=== PATIENT | female | born 1945 | race Caucasian/White ===

== ENCOUNTER 2019-12-21 14:01 | Emergency (ER) | payer MEDICARE, SELFPAY ==
--- NOTE | 2019-12-21 14:37 | PC.NURSE ---
1415 Noted prior to triage pt states she is here to have her ear irrigated and wax removed. provider previously stated she will not irrigate ear if needed for wax removal - pt aware. pt states she does not want to be seen at this time and left without being seen. observed talkative in no distress.
== END 2019-12-21 14:15 | disposition left against medical advice (07) ==
LOC: EXPBETH 14:16
PROVIDERS: Emergency Provider Nurse Practitioner Family; PCP Family Medicine
DX: Z53.21 Procedure and treatment not carried out due to patient leaving prior to being seen by health care provider (principal)
CPT/HCPCS: 99199

== ENCOUNTER 2020-05-05 13:16 | Outpatient (CLI) | payer MEDICARE, SELFPAY | END 2020-05-05 13:17 | disposition home or self-care (01) | LOC: ANHSURGERY 13:18 | PROVIDERS: PCP Family Medicine; Visit Provider Urology | DX: N39.3 Stress incontinence (female) (male) (principal) | CPT/HCPCS: 87086; 87088 ==

== ENCOUNTER 2020-05-10 00:11 | Outpatient (CLI) | payer MEDICARE, SELFPAY ==
[2020-05-10 18:10] LABS: SARS-CoV-2 RNA PCR Negative
== END 2020-05-10 00:12 | disposition home or self-care (01) ==
LOC: ANHCOVIDDT 00:11
PROVIDERS: PCP Family Medicine; Visit Provider Urology
DX: Z20.828 Contact with and (suspected) exposure to other viral communicable diseases (principal); Z01.812 Encounter for preprocedural laboratory examination
CPT/HCPCS: 87635; C9803; U0003

== ENCOUNTER 2020-05-12 02:31 | Day surgery (SDC) | payer MEDICARE, SELFPAY ==
[2020-05-04 12:07] VITALS: BMI 30.8
--- NOTE | 2020-05-12 07:13 | WPDHPUPDATE1 ---
History and Physical Update Update Date/Time: 05/12/20 07:13 History and Physical has been reviewed, including an updated exam of the patient. There are NO changes in the patient's condition. Risks, benefits, and alternatives have been discussed and questions answered. Patient agrees to proceed with procedure.
[2020-05-12 07:21] VITALS: BP 147/64; PULSE 57; RESP 16; TEMP 36; O2SAT 98
[2020-05-12] MEDS: LACTATED RINGERS 1,000 ML 30 ML IV CONT (07:35)
--- NOTE | 2020-05-12 07:50 | WPDANESEPPF ---
Anes - Initial Pre Proc Eval Procedure: Operation Date: 05/12/20 08:45 Proposed Procedures p Urethral Sling - Omega Dc MD Date/Time: 05/12/20 07:50 Surgeon: Omega Dc MD Pre Op Diagnosis: Stress Incontinence Patient Data Age: 75 Gender: F Height: 5 ft 5 in Weight: 85.7 kg Last Vital Signs Temp 36.0 C L 05/12/20 07:21 Pulse 57 L 05/12/20 07:21 Resp 16 05/12/20 07:21 BP 147/64 H 05/12/20 07:21 Pulse Ox 98 05/12/20 07:21 Allergies Allergy/AdvReac Type Severity Reaction Status Date / Time nitrofurantoin Allergy Severe Anaphylaxis Verified 05/12/20 07:03 azithromycin AdvReac Intermediate Gastrointestinal Verified 05/12/20 07:03 Upset Home Medications Medication Instructions Recorded Confirmed Type ramipril 5 mg capsule 5 mg PO DAILY 03/20/20 05/12/20 History simvastatin 10 mg tablet 10 mg PO HS 03/20/20 05/12/20 History aspirin [Adult Low Dose Aspirin] 81 mg PO HS 05/04/20 05/12/20 History calcium carbonate-vitamin D3 1 cap PO DAILY 05/04/20 05/12/20 History [Calcium 600 with Vitamin D3] cephalexin 250 mg PO QPM 05/04/20 05/12/20 History loratadine [Claritin] 10 mg PO DAILY PRN 05/04/20 05/12/20 History Patient hx anesthesia problems: none Family hx anesthesia problems: none PMFSH Past Medical History Medical History Essential hypertension History of breast cancer Mixed hyperlipidemia Prediabetes LUZ ELENA (stress urinary incontinence, female) Vitamin D deficiency Family History Family History Father Hypertension Malignant neoplasm of prostate Family history of lung cancer Family history of coronary artery disease Grandparent Family history of coronary artery disease Mother Family history of coronary artery disease Family history of congenital heart disease Family history of rheumatoid arthritis Family history of osteoarthritis Other Family history of malignant neoplasm of breast Social History Social History Smoking status: Never smoker Second hand tobacco smoke exposure: No Smoking end date: 11/24/95 Alcohol intake: current Anes - Eval Final PreProcedure Day of Procedure 05/12/20 07:50 Patient weight: obese Heart: regular rate and rhythm Lungs: clear to auscultation Airway: Mallampati scale class II Neurological: alert and oriented Last oral intake: >/= 8 hours ASA classification: II Emergent: no Anesthetic plan: proceed Anesthesia type and monitoring: general GIVS and standard monitoring Informed Consent: The patient's anesthetic plan and its attendant risks and benefits were discussed with the patient/family/POA. Questions were solicited and answers provided to the satisfaction of the patient/family/POA.
[2020-05-12] MEDS: ceFAZolin 2 GM/D5W 50 ML 2 GM/50 ML BAG IVPB (08:30)
[2020-05-12] MEDS: BUPIVACAINE/EPINEPHRINE 0.25% 50 ML VIAL 10 ML INFILTRATE (08:40)
[2020-05-12 09:00] VITALS: BP 103/61; PULSE 62; RESP 16; O2SAT 96
--- NOTE | 2020-05-12 09:00 | PM.PROC ---
Procedure Note - Detailed Date of procedure: 05/12/20 Pre-op diagnosis: Stress Incontinence Intrinsic sphincter deficiency Post-op diagnosis: same Procedure performed: Cystoscopy with implantation of suburethral implant material [id number] Description of procedure: She was correctly identified and informed consent was obtained. She was brought to the operating room. She was given mac anesthesia. She was placed in the dorsal lithotomy position. She was prepped and draped in a sterile fashion. A time-out performed. Cystoscopy revealed no tumors in the bladder and an open urethra consistent with intrinsic sphincter deficiency. I injected the bulking agent into the urethra at the 10:00 a.m. to o'clock and 6 o'clock position. There is excellent bulking effect. Her bladder was drained with a 12 [place] red rubber catheter. She was awakened and transferred to the PACU in stable condition. Implants: Macroplastique Anesthesia: MAC Surgeon: Omega Dc MD Drains: No Packing: No Pathology: none sent Complications: No immediate complications Condition: stable Disposition: PACU
[2020-05-12 09:15] VITALS: BP 139/68; PULSE 56; RESP 18; O2SAT 100
--- NOTE | 2020-05-12 09:27 | SUR.PHASEII ---
UPDATED; EN ROUTE TO HOSPITAL.
[2020-05-12 09:39] VITALS: BP 133/73; PULSE 55; RESP 16
== END 2020-05-12 09:55 | disposition home or self-care (01) ==
PROVIDERS: PCP Family Medicine; Visit Provider Urology
PROC: (CPT 51715; principal; 2020-05-12 08:45)
DX: N39.3 Stress incontinence (female) (male) (principal); N36.42 Intrinsic sphincter deficiency (ISD); I10 Essential (primary) hypertension; E78.2 Mixed hyperlipidemia; E55.9 Vitamin D deficiency, unspecified; R73.03 Prediabetes; Z85.3 Personal history of malignant neoplasm of breast; Z79.82 Long term (current) use of aspirin; E66.9 Obesity, unspecified; Z68.31 Body mass index [BMI] 31.0-31.9, adult
CPT/HCPCS: 51715; C1771; J0690; J2704; J3010; J7030; J7120

== ENCOUNTER → 2021-03-13 13:03 | Outpatient (CLI) | payer MEDICARE, SELFPAY ==
--- NOTE | ~2021-03-13 | MM_ITS ---
EXAMINATION: MM screening jagruti BI w gregoria HISTORY: Screening mammogram TECHNIQUE: Craniocaudal and mediolateral oblique 3-D tomosynthesis images were obtained and synthetic 2-D images were generated. CAD analysis was submitted and interpreted. COMPARISON: 09/29/2019, 09/07/2018, 09/03/2017 bilateral digital screening mammogram examinations BREAST PARENCHYMAL COMPOSITION: There are scattered areas of fibroglandular density. FINDINGS: Surgical clips and stable scarring are noted posteriorly in the upper outer quadrant of the right breast, without significant change since 09/29/2019 or 09/03/2017. There is no evidence of susp icious mass, calcification, or architectural distortion to suggest malignancy in either breast. There has been no suspicious interval change. IMPRESSION: 1. No mammographic evidence of malignancy. 2. Recommend routine screening mammography in one year. BI-RADS Category 2: Benign finding(s). Reviewed, dictated and finalized at location A.
== END ==
PROVIDERS: PCP Family Medicine; Visit Provider Student in an Organized Health Care Education/Training Program
DX: Z12.31 Encounter for screening mammogram for malignant neoplasm of breast (principal)
CPT/HCPCS: 77063; 77067

== ENCOUNTER 2022-02-05 11:09 | Outpatient (CLI) | payer MEDICARE, SELFPAY ==
--- NOTE | ~2022-02-05 | CT_ITS ---
EXAMINATION: CT abdomen pelvis w con DATE: 02/05/2022 11:45 INDICATION: Left lower quadrant abdominal pain. TECHNIQUE: Computed tomography (CT) of the abdomen and pelvis was performed with 100 mL Omnipaque 350 intravenous contrast. Automated exposure control and iterative reconstruction technique were employe d. The dose-length product was 936.25 mGy-cm. COMPARISON: None. FINDINGS: The visualized portions of the lung bases demonstrate emphysema and mild atelectasis. No pl eural effusion. The heart size is normal. No pericardial effusion. There are coronary artery calcific ations. There is a small sliding hiatal hernia. The liver, gallbladder, spleen, pancreas, adrenal gla nds, and right kidney are normal. There is a 2.6 cm cyst in left kidney. There is diverticulosis of t he colon without evidence of diverticulitis. There are no dilated loops of bowel. The appendix is nor mal. There are no pathologically enlarged lymph nodes. There is no free intraperitoneal fluid. There is mild thoracolumbar spondylosis. IMPRESSION: 1. Small sliding hiatal hernia. Reviewed, dictated and finalized at location A.
[2022-02-05 11:38] LABS: Estimated Glomerular Filt Rate > 60
== END 2022-02-05 11:10 | disposition home or self-care (01) ==
LOC: ANHIMG 11:10
PROVIDERS: PCP Family Medicine; Visit Provider Family Medicine
DX: R10.32 Left lower quadrant pain (principal); K44.9 Diaphragmatic hernia without obstruction or gangrene; K57.30 Diverticulosis of large intestine without perforation or abscess without bleeding; M47.815 Spondylosis without myelopathy or radiculopathy, thoracolumbar region
CPT/HCPCS: 74177; Q9967

== ENCOUNTER → 2022-02-13 15:25 | Outpatient (CLI) | payer MEDICARE, SELFPAY ==
--- NOTE | ~2022-02-13 | XR_ITS ---
XR abdomen obstructive series 02/13/2022 16:18 Indication: Left lower quadrant pain Procedure: Supine and upright views of the abdomen Comparison: No prior studies for comparison. Findings: Bowel pattern is nonobstructive. Moderate colonic fecal loading. There is atherosclerosis. Calcified granuloma left mid thorax. Probable mild interstitial edema. No acute osseous abnormality. 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 No renal stones are identified. There are pelvic phleboliths. Impression: 1: Nonobstructive bowel gas pattern with moderate colonic fecal loading. Reviewed, dictated and finalized at location A. Impression: 1: Nonobstructive bowel gas pattern with moderate colonic fecal loading.
== END ==
PROVIDERS: PCP Family Medicine; Visit Provider Family Medicine
DX: R10.32 Left lower quadrant pain (principal); M16.0 Bilateral primary osteoarthritis of hip; I70.90 Unspecified atherosclerosis
CPT/HCPCS: 74019

== ENCOUNTER 2024-05-01 09:18 | Emergency (ER) | payer MEDICARE, SELFPAY ==
--- NOTE | 2024-05-01 09:25 | ED.GENADULT ---
HPI - General Adult General Chief complaint: Urogenital-Female Stated complaint: Urinary Problem Time Seen by Provider: 05/01/24 09:25 Source: patient, RN notes reviewed and old records reviewed Mode of arrival: ambulatory Limitations: no limitations History of Present Illness HPI narrative: 79-year-old female to express for complaint of urinary frequency, urgency, burning and pain for 2 days. Patient reports she has increased her water intake and used AZO yesterday during the day to control sx. Patient denies abdominal pain, fever, nausea, flank pain. Patient able to tolerate fluids by mouth. Patient in no acute distress. Related Data Home Medications Medication Instructions Recorded Confirmed aspirin 81 mg tablet,delayed 81 mg PO HS 05/04/20 05/01/24 release (Adult Low Dose Aspirin) calcium carbonate 600 mg-vitamin 1 cap PO DAILY 05/04/20 05/01/24 D3 12.5 mcg (500 unit) capsule (Calcium 600 with Vitamin D3) Allergies Allergy/AdvReac Type Severity Reaction Status Date / Time nitrofurantoin Allergy Severe Anaphylaxis Verified 05/01/24 10:09 azithromycin AdvReac Intermediate Gastrointestinal Verified 05/01/24 10:09 Upset Review of Systems Review of Systems: All systems reviewed & are unremarkable except as noted in HPI and below Constitutional: Constitutional: Reports no additional constitutional complaints Eyes: Eyes: Reports no additional eye complaints ENT: Reports system reviewed and no additional complaints, except as documented Cardiovascular: Cardiovascular: Reports no additional cardiovascular complaints, Denies chest pain and Denies dyspnea Respiratory: Respiratory: Reports no additional respiratory complaints, Denies cough and Denies dyspnea Gastrointestinal: Gastrointestinal: Denies abdominal pain, Denies nausea and Denies vomiting Genitourinary: Genitourinary: Reports as per HPI, Reports nocturia, Reports dysuria, Denies flank pain, Reports urinary hesitancy and Reports urinary urgency Musculoskeletal: Musculoskeletal: Reports no additional musculoskeletal complaints Neurologic: Reports system reviewed and no additional complaints, except as documented Psychiatric: Psychiatric: Reports no additional psychiatric complaints [facility] Past Medical History Medical History Bursitis of left hip Essential hypertension History of breast cancer IBS (irritable bowel syndrome) Mixed hyperlipidemia Prediabetes LUZ ELENA (stress urinary incontinence, female) Vitamin D deficiency Surgical History Surgical History H/O colonoscopy with polypectomy (~05/31/20) History of colonoscopy Status post creation of urethral sling by suprapubic approach Family History Family History Father Hypertension Malignant neoplasm of prostate Family history of lung cancer Family history of coronary artery disease Grandparent Family history of coronary artery disease Mother Family history of coronary artery disease Family history of congenital heart disease Family history of rheumatoid arthritis Family history of osteoarthritis Other Family history of malignant neoplasm of breast Social History Social History Smoking status: Former smoker Second hand tobacco smoke exposure: No Smoking end date: 07/25/00 Alcohol intake: current Substance use: never Substance use type: does not use Lack of Transportation: No Lack of Food: Never True Current Housing: I Have Housing Concerned About Future Housing: No Difficulty Paying Gas/Electric Bills: No Difficulty Paying for Meds: No Currently Unemployed: No Education: High School Diploma/GED Difficulty w/ Childcare or Family Care: No Living arrangements: with family Occupation/Education: retir
[2024-05-01 09:32] VITALS: BP 128/62; PULSE 69; RESP 20; TEMP 36.6; O2SAT 100
== END 2024-05-01 10:12 | disposition home or self-care (01) ==
PROVIDERS: Emergency Provider Nurse Practitioner Family; PCP Family Medicine
DX: N39.0 Urinary tract infection, site not specified (principal); B96.20 Unspecified Escherichia coli [E. coli] as the cause of diseases classified elsewhere; Z87.891 Personal history of nicotine dependence; I10 Essential (primary) hypertension; E78.2 Mixed hyperlipidemia; R73.03 Prediabetes; E55.9 Vitamin D deficiency, unspecified; Z85.3 Personal history of malignant neoplasm of breast; Z79.82 Long term (current) use of aspirin
CPT/HCPCS: 81003; 87077; 87086; 87088; 87186; 99213; G0463

== ENCOUNTER 2024-11-03 10:35 | Emergency (ER) | payer MEDICARE, SELFPAY ==
[2024-11-03 10:45] VITALS: BP 199/96; PULSE 66; RESP 24; TEMP 35.7; O2SAT 99
--- NOTE | 2024-11-03 10:53 | ED.FEMALEGU ---
HPI - Female Genitourinary General Chief complaint: Urogenital-Female Stated complaint: Urinary Problem Time Seen by Provider: 11/03/24 10:53 Source: patient and RN notes reviewed Mode of arrival: ambulatory Limitations: no limitations History of Present Illness HPI Narrative: 79-year-old female presented for complaint of burning with urination this morning. Also reports similar symptoms for 1 day last week. Started taking Cystex and AZO last week and symptoms improved until today. Denies hematuria, nausea, vomiting, abdominal pain, flank pain, constipation, diarrhea, fevers or chills. Related Data Home Medications ?Medication ?Instructions ?Recorded ?Confirmed ?Last Taken ?Type aspirin 81 mg tablet,delayed 81 mg PO HS 05/04/20 11/03/24 05/05/20 History release (Adult Low Dose Aspirin) Allergies Allergy/AdvReac Type Severity Reaction Status Date / Time nitrofurantoin Allergy Severe Anaphylaxis Verified 11/03/24 10:55 azithromycin AdvReac Intermediate Gastrointestinal Verified 11/03/24 10:55 Upset Review of Systems Review of Systems: CONSTITUTIONAL: Denies body aches, fever, chills, or sweats. CARDIOVASCULAR: Denies chest pain, palpitations, or edema. RESPIRATORY: Denies cough or dyspnea. GASTROINTESTINAL: Denies abdominal pain, nausea, vomiting, or diarrhea. GENITOURINARY: Reports dysuria, denies frequency, urgency, hematuria, flank pain SKIN: Denies rash, itching, or wounds. MUSCULOSKELETAL: Denies back pain or myalgia. COUNTS INCLUDE 234 BEDS AT THE [facility] Past Medical History Medical History IBS (irritable bowel syndrome) Bursitis of left hip Essential hypertension History of breast cancer Mixed hyperlipidemia Prediabetes LUZ ELENA (stress urinary incontinence, female) Vitamin D deficiency Surgical History Surgical History History of colonoscopy Status post creation of urethral sling by suprapubic approach H/O colonoscopy with polypectomy (~05/31/20) Family History Family History Father Hypertension Malignant neoplasm of prostate Family history of lung cancer Family history of coronary artery disease Grandparent Family history of coronary artery disease Mother Family history of coronary artery disease Family history of congenital heart disease Family history of rheumatoid arthritis Family history of osteoarthritis Other Family history of malignant neoplasm of breast Social History Social History Smoking status: Former smoker Second hand tobacco smoke exposure: No Smoking end date: 07/25/00 Alcohol intake: current Substance use: never Substance use type: does not use Lack of Transportation: No Lack of Food: Never True Current Housing: I Have Housing Concerned About Future Housing: No Difficulty Paying Gas/Electric Bills: No Difficulty Paying for Meds: No Currently Unemployed: No Education: High School Diploma/GED Difficulty w/ Childcare or Family Care: No Living arrangements: with family Occupation/Education: retired Gender identity (if verbalized by the patient): Female Sexual Orientation (if Verbalized by the Patient): Straight or Heterosexual Spiritual care concerns: No Agree to blood products: Yes Comments At time of signature, I have reviewed and agree with nursing past medical, surgical, social and family history unless otherwise noted. Please see nursing chart for further information. There is no relevant family history pertinent to the presenting complaint Exam Narrative: GENERAL: Well-appearing ENT: Mucous membranes pink and moist. NECK: Normal AROM. Supple. CHEST: No respiratory distress. Clear to auscultation. HEART: Regular rate and rhythm. ABDOMEN: Soft, nontender, nondistended, normal active bowel sounds. No CVA tenderness SKIN: Warm, dry, no rash. NEURO: No focal deficits. Alert and oriented x3. Gait steady. PSYCH: Normal affect. Course Course Emergency Course: Patient is aware of diagnosis, understands and agrees to treatment plan. Anticipatory guidance given. Patient agrees to follow-up as directed and is aware of reasons to seek care at the emergency department. Portions of this record may have been created with voice recognition software Level of Care: Express Care Visit Vital Signs Vital signs: Vital Signs Temperature 96.3 F L 11/03/24 10:45 Pulse Rate 66 11/03/24 10:45 Respiratory Rate 24 H 11/03/24 10:45 Blood Pressure 199/96 H 11/03/24 10:45 Pulse Oximetry 99 11/03/24 10:45 Oxygen Delivery Room Air 11/03/24 10:45 Temperature 96.3 F L 11/03/24 10:45 Pulse Rate 66 12/11/24 10:45 Respiratory Rate 24 H 11/03/24 10:45 Blood Pressure 199/96 H 11/03/24 10:45 Pulse Oximetry 99 11/03/24 10:45 Oxygen Delivery Room Air 11/03/24 10:45 Reviewed MDM - Female Genitourinary MDM Narrative Medical decision making narrative: Discussed physical exam findings and urine dip. Advised supportive measures and signs/symptoms to go to the ER. Pt is appropriate for outpt treatment and f/u. Differential Diagnosis Differential diagnosis: Likely urinary tract infection, vaginitis and cystitis Lab Data Labs: Lab Results 11/03/24 Range/Units 10:58 POC Urine Color Yellow POC Urine Clarity Cloudy POC Urine pH 7.0 POC Ur Specif [place] 1.015 POC Urine Protein Negative (Negative) POC Ur Glucose (UA) Negative (Negative) POC Urine Ketones Negative (Negative) POC Urine Blood 2+ (Negative) POC Urine Nitrite Negative (Negative) POC Urine Bilirubin Negative (Negative) POC Urine Urobilinogen 0.2 POC U Leukocyte Esteras 1+ (Negative) Discharge Plan Discharge Clinical Impression: Urinary tract infection Qualifiers: Urinary tract infection type: site unspecified Hematuria presence: with hematuria Qualified Code(s): N39.0 - Urinary tract infection, site not specified Patient Disposition: Home, Self-Care Condition: Stable Instructions: Antibiotic Form, Urinary Tract Infection in Older Adults (ED) Additional Instructions: Your blood pressure reading was elevated (above 120/80) please follow-up with your primary care provider for further evaluation and management. If you develop worsening Blood Pressure symptoms, (headache, vision changes, dizziness, vomiting, chest pain, etc) go to the ER. Call 911. Take the antibiotic as prescribed The urine will be sent of for a culture to identify what type of bacteria is causing your infection. If the culture shows that the antibiotic will not get rid of your infection, you will be notified and a new antibiotic will be called in for you. Increase water intake you will need to follow up with your PCP, call to schedule an appointment. Go to the ER for any worsening symptoms or concerns Patient Language: Libyan Prescriptions: New amoxicillin-pot clavulanate [Augmentin] 500-125 mg tablet 1 tablet PO Q12H 5 Days Qty: 10 0RF No Action aspirin [Adult Low Dose Aspirin] 81 mg Tablet,Delayed Release (Dr/Ec) 81 mg PO HS ramipril 5 mg capsule 5 mg PO DAILY Qty: 90 4RF simvastatin 10 mg tablet 10 mg PO HS Qty: 90 4RF Follow-up/Referrals: Donna Love MD [Primary Care Provider] - Time of Disposition: 11:03
[2024-11-03 11:00] LABS: EDUAAPPEAR Cloudy; EDUABILI Negative (Negative); EDUABLOOD 2+ (Negative); EDUACOLOR1 Yellow; EDUAGLUCOSE Negative (Negative); EDUAKETONE Negative (Negative); EDUALEUKO 1+ (Negative); EDUANITRATE Negative (Negative); EDUAPROTEIN Negative (Negative); EDUASPGRAVITY 1.015; EDUAUROBILI 0.2
== END 2024-11-03 11:08 | disposition home or self-care (01) ==
PROVIDERS: Emergency Provider Nurse Practitioner Family; PCP Family Medicine
DX: N39.0 Urinary tract infection, site not specified (principal); I10 Essential (primary) hypertension; E78.2 Mixed hyperlipidemia; R73.03 Prediabetes; Z85.3 Personal history of malignant neoplasm of breast; Z87.891 Personal history of nicotine dependence; Z79.82 Long term (current) use of aspirin
CPT/HCPCS: 81003; 87086; 99213; G0463